=== PATIENT | female | born 1955 | race Caucasian/White ===

== ENCOUNTER 2016-05-10 18:53 | Emergency (ER) | payer SELFPAY ==
[~2016-05-10] VITALS: Ht 170.2 cm; Wt 72.7 kg
[2016-05-10 20:07] VITALS: BP 137/92
== END 2016-05-10 20:58 | disposition home or self-care (01) ==
LOC: EMS 18:55
DX: S01.81XA Laceration without foreign body of other part of head, initial encounter (principal); W45.8XXA Other foreign body or object entering through skin, initial encounter; Y93.89 Activity, other specified; Y92.89 Other specified places as the place of occurrence of the external cause; Y99.8 Other external cause status
CPT/HCPCS: 12011; 99283